=== PATIENT | female | born 1960 | race Caucasian/White ===

== ENCOUNTER 2022-01-16 21:23 | Emergency (ER) | payer OTHER ==
[2022-01-16] MEDS ORDERED: ONDANSETRON HCL 4 MG/2 ML VIAL IVP ONE (21:45)
[2022-01-16] MEDS ORDERED: NACL 0.9% 1,000 ML IV ONE ×2 (21:45→23:15)
[2022-01-16] MEDS ORDERED: FAMOTIDINE PF 20 MG/2 ML VIAL IVP ONE (21:45)
[2022-01-16 21:58] LABS: BASOPHILS % (AUTO) 0.3 % (0.0-2.0); HEMATOCRIT 40.8 % (36-48); HEMOGLOBIN 13.6 g/dL (12.0-16.0); LYMPHOCYTES # (AUTO) 1.4 K/uL (1.0-5.5); LYMPHOCYTES % (AUTO) 27.5 % (20.5-51.5); MEAN CORPUSCULAR HEMOGLOBIN 29 pg (27-31); MEAN CORPUSCULAR HGB CONC 34 % (32-36); MEAN CORPUSCULAR VOLUME 86 fL (79.0-98.0); MONOCYTES # (AUTO) 0.4 K/uL (0.0-1.0); MONOCYTES % (AUTO) 7.8 % (1.7-9.3); NEUTROPHILS # (AUTO) 3.3 K/uL (1.8-7.7); NEUTROPHILS % (AUTO) 64.4 % (40.0-70.0); PLATELET COUNT (AUTO) 245 K/uL (130-430); RED BLOOD CELL COUNT(AUTO) 4.73 MIL/uL (4.2-6.2); RED CELL DISTRIBUTION WIDTH 13.6 % (9.0-15.0); WHITE BLOOD COUNT (AUTO) 5.2 K/uL (4.8-10.8)
[2022-01-16 22:06] LABS: CALCIUM 8.7 mg/dL (8.4-11.0); CREATININE 1.17 mg/dL (0.55-1.30)
[2022-01-16 22:08] LABS: POTASSIUM 2.5 mmol/L (3.5-5.1)
[2022-01-16 22:14] LABS: TOTAL BILIRUBIN 0.4 mg/dL (0.0-1.0)
[2022-01-16 22:15] LABS: ALBUMIN 3.8 g/dL (3.4-4.8)
[2022-01-16] MEDS ORDERED: KCL 10 mEq in 50 mL (PREMIX) 50 ML IV ONE (22:30)
[2022-01-16 23:13] VITALS: BP_SYST 148
[2022-01-17] MEDS ORDERED: KCL 10 mEq in 50 mL (PREMIX) 50 ML IV ONE (00:29)
[2022-01-17] MEDS ORDERED: KCL 20 mEq in 100 mL (PREMIX) 100 ML IV ONE ×2 (00:37→01:00)
[2022-01-17 00:59] LABS: BILIRUBIN,URINE NEGATIVE (NEGATIVE); BLOOD, URINE 2+ (NEGATIVE); CLARITY/URINE CLEAR (CLEAR); COLOR,URINE YELLOW (YELLOW); GLUCOSE,URINE NEGATIVE (NEGATIVE); KETONES,URINE NEGATIVE (NEGATIVE); LEUKOCYTE ESTERASE ,URINE 1+ (NEGATIVE); NITRITE, URINE NEGATIVE (NEGATIVE); PROTEIN URINE NEGATIVE (NEGATIVE); UROBILINOGEN,URINE 0.2 (0.2-1.0)
[2022-01-17 01:41] LABS: BACTERIA,URINE FEW /HPF (None Seen); WBC,URINE 20-50 /HPF (0-3)
[2022-01-17 01:42] LABS: MUCUS,URINE 3+ /LPF (None Seen)
[2022-01-17] MEDS ORDERED: cefTRIAXone 1 GM in D5W 50 ML IV ONE (02:00)
[2022-01-17] MEDS ORDERED: cefTRIAXone 1 GM VIAL ONE (02:21)
[2022-01-17] MEDS ORDERED: POTASSIUM CHLORIDE 20 MEQ TAB.PRT.SR ONE (02:40)
[2022-01-17] MEDS ORDERED: MORPHINE 2 MG/ML INJ. SYRINGE IVP ONE (02:45)
[2022-01-17] MEDS ORDERED: PROCHLORPERAZINE EDISYLATE 10 MG/2 ML VIAL IVP ONE (02:45)
[2022-01-17] MEDS ORDERED: POTASSIUM CHLORIDE 20 MEQ TAB.PRT.SR PO ONE (02:45)
[2022-01-17] MEDS ORDERED: PROC25SU2 RC (02:46)
[2022-01-17] MEDS ORDERED: ONDA-8 TL (02:46)
[2022-01-17] MEDS ORDERED: METO10TA3 PO (02:46)
[2022-01-17] MEDS ORDERED: POTA-197 PO (02:48)
[2022-01-17 03:37] VITALS: BP_SYST 149
--- NOTE | 2022-01-17 03:42 | NUR ---
DISCHARGE INSTRUCTIONS COMPLETED, PATIENT VERBALIZED UNDERSTANDING. PAPERWORK READY AND SIGNED BY PATIENT, SAME GIVEN TO HER. PATIENT'S #18 G ON THE RIGHT ANTICUBITAL DISCONTINUED, CATHETER INTACT.BLEEDING STOPPED AND BANDAGED. PATIENT IN A STABLE CONDITION, WALKED OFF THE ED ACCOMPANIED BY SELF.
== END 2022-01-17 03:42 | disposition home or self-care (01) ==
LOC: SED 21:23
DX: K92.0 Hematemesis (principal); N39.0 Urinary tract infection, site not specified; K21.9 Gastro-esophageal reflux disease without esophagitis; E87.6 Hypokalemia; Z79.899 Other long term (current) drug therapy
CPT/HCPCS: 36415; 80053; 81000; 85025; 87086; 96365; 96366; 96367; 96375 ×2; 99284; J0696; J0780; J2270; J2405; J3480 ×3; J3490; J7030